=== PATIENT | male | born 1960 | race Caucasian/White ===

== ENCOUNTER → 2018-07-19 | Outpatient (CLI) | payer OTHER | END | disposition home or self-care (01) | LOC: WOUND 10:24 | PROVIDERS: ATTEND Internal Medicine | DX: L89.152 Pressure ulcer of sacral region, stage 2 (principal); E80.4 Gilbert syndrome; G35 Multiple sclerosis; G25.3 Myoclonus; G82.50 Quadriplegia, unspecified; Z87.891 Personal history of nicotine dependence | CPT/HCPCS: 99213 ==